=== PATIENT | male | born 1985 | race African-American/Black ===

== ENCOUNTER 2016-12-02 07:10 | Emergency (ER) | payer OTHER ==
[2016-12-02 07:32] VITALS: TEMP 98.6; BMI 32.3
[2016-12-02] MEDS ORDERED: KETOROLAC TROMETHAMINE 60 MG/2 ML VIAL IM ONE (08:01)
--- NOTE | 2016-12-02 08:01 | PDOC ---
Attending Attestation - Resident Resident Name: Kenan Nichole - ED Attending Attestation I have performed the following: I have examined & evaluated the patient, The case was reviewed & discussed with the resident, I agree w/resident's findings & plan, Exceptions are as noted - HPI HPI: 12/02/16 08:01 31 M with no PMH presents to ER with L shoulder pain since Sunday. Pt states that 2 days ago, he pulled open a heavy door, slamming it directly into his left shoulder. He denies falling or injuring any other part of his body. He states that the pain subsided the day after. However, when he awoke this morning , he states that the pain was exacerbated when he attempted to raise his left arm. He denies numbness/weakness in the shoulder or extremity. Denies neck pain. - Physicial Exam PE: 12/02/16 09:24 "GENERAL: Awake, alert, and fully oriented, in no acute distress HEAD: No signs of trauma EYES: PERRLA, EOMI, sclera anicteric, conjunctiva clear ENT: Auricles normal inspection, hearing grossly normal, nares patent, oropharynx clear without exudates. Moist mucosa NECK: Nontender, no stepoffs, Normal ROM, supple, no lymphadenopathy, JVD, or masses LUNGS: Breath sounds equal, clear to auscultation bilaterally. No wheezes, and no crackles HEART: Regular rate and rhythm, normal S1 and S2, no murmurs, rubs or gallops ABDOMEN: Soft, nontender, normoactive bowel sounds. No guarding, no rebound. No masses EXTREMITIES: L shoulder with no deformity, full passive ROM, active flexion and abduction of shoulder limited 2/2 pain, sensation intact to light touch, distal pulses intact NEUROLOGICAL: Cranial nerves II through XII intact. 5/5 strength and sensation in all extremities, Normal speech, normal gait SKIN: Warm, Dry, normal turgor, no rashes or lesions noted. " - Medical Decision Making 12/02/16 09:24 31 M with L shoulder injury. Possible impingement vs rotator cuff injury. - XR - Toradol - f/u ortho 12/02/16 13:27 XR negative. Pt with significantly improved pain s/p toradol. Stable for DC
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
[2016-12-02] MEDS ORDERED: KETOROLAC TROMETHAMINE 60 MG/2 ML VIAL ONE (08:10)
[2016-12-02 09:29] VITALS: BP 140/74; PULSE 80
== END 2016-12-02 09:30 | disposition home or self-care (01) ==
LOC: JER 07:10
PROC: 3E0233Z Introduction of Anti-inflammatory into Muscle, Percutaneous Approach (ICD-10-PCS; principal; 2016-12-02)
DX: S49.82XA Other specified injuries of left shoulder and upper arm, initial encounter (principal); X50.9XXA Other and unspecified overexertion or strenuous movements or postures, initial encounter; Y93.89 Activity, other specified; Y92.89 Other specified places as the place of occurrence of the external cause; Y99.8 Other external cause status
CPT/HCPCS: 73030-TC-LT; 96372; 99282-25